=== PATIENT | female | born 1950 | race Caucasian/White ===

== ENCOUNTER → 2023-08-07 09:09 | Outpatient (REF) | payer MEDICARE, OTHER, SELFPAY | LOC: HWRAD 09:09 | PROVIDERS: ATTENDING PHYSICIAN Internal Medicine Interventional Cardiology; FAMILY PHYSICIAN Nurse Practitioner Family | DX: I10 Essential (primary) hypertension (principal) | CPT/HCPCS: 93975 ==

== ENCOUNTER → 2023-08-22 11:03 | Outpatient (REF) | payer MEDICARE, OTHER, SELFPAY | LOC: HWRCS 11:03 | PROVIDERS: ATTENDING PHYSICIAN Internal Medicine Interventional Cardiology; FAMILY PHYSICIAN Nurse Practitioner Family | DX: I10 Essential (primary) hypertension (principal) | CPT/HCPCS: 93306 ==

== ENCOUNTER → 2024-06-22 08:58 | Outpatient (REF) | payer MEDICARE, OTHER, SELFPAY | LOC: RAD 08:58 | PROVIDERS: ATTENDING PHYSICIAN Nurse Practitioner Family | DX: E83.52 Hypercalcemia (principal) | CPT/HCPCS: 78071; A9500 ==

== ENCOUNTER → 2024-06-23 11:34 | Outpatient (REF) | payer MEDICARE, OTHER, SELFPAY | LOC: RAD 11:34 | PROVIDERS: ATTENDING PHYSICIAN Nurse Practitioner Family; FAMILY PHYSICIAN Nurse Practitioner Family | DX: E83.52 Hypercalcemia (principal) | CPT/HCPCS: 76536 ==

== ENCOUNTER 2024-09-15 06:02 | Day surgery (SDC) | payer MEDICARE, OTHER, SELFPAY ==
[2024-08-24 14:17] VITALS: BMI 31.1
[2024-09-15] VITALS (18 sets, daily range): BP systolic 111–164; BP diastolic 54–85; BMI 31.1
[2024-09-15] MEDS: NEURONTIN 300 MG PO (07:16)
[2024-09-15] MEDS: TYLENOL 1000 MG PO (07:17)
[2024-09-15] MEDS: HEPARIN 5000 UNITS SC (07:22)
[2024-09-15] MEDS: NORMOSOL-R/PLASMALYTE-A 1000 IV (07:22)
[2024-09-15 07:24] LABS: Glucose - Point of Care 137 mg/dl (70-99)
[2024-09-15 08:38] LABS: Turbo PTH 286.6 pg/ml (13.6-85.8)
[2024-09-15 09:26] LABS: Turbo PTH 231.5 pg/ml (13.6-85.8)
[2024-09-15 10:11] LABS: Turbo PTH 167.2 pg/ml (13.6-85.8)
[2024-09-15 11:14] LABS: Turbo PTH 56.9 pg/ml (13.6-85.8)
[2024-09-15 11:18] LABS: Glucose - Point of Care 180 mg/dl (70-99)
--- NOTE | 2024-09-15 11:34 | OR.RPT ---
Operative Report
Operative Report
Date of Operation: September 15, 2024
Preoperative Diagnosis: Parathyroid hyperparathyroidism - E210
Postoperative Diagnosis: Same
Surgeon: Hank Vicente M.D.
Operation: Neck exploration, Left Superior Parathyroidectomy � 17734; Resection of the bilateral superior horn thymic tissue
Anesthesia: GET
Estimated Blood Loss: 3 cc
Drains: None
Specimen: Left Superior neck nodule, rule out parathyroid adenoma, Right lower neck nodule, rule out parathyroid adenoma, bilateral superior horn thymic tissue
Complications: None
Procedure:
The patient was taken to the operating room and placed in the usual supine position. After adequate general endotracheal anesthesia was established, the patient's neck was extended, prepped, and draped in the typical sterile fashion. A 4 cm
transcervical incision was made two fingerbreadths above the sternal notch. The skin incision was made with the #15 blade, and this was taken through the skin into the subcutaneous tissue. The underlying platysma muscle was divided, and subplatysmal
flaps were created superiorly to the thyroid cartilage and inferiorly to the sternal notch. Strap muscles were identified and at the midline.
The attention was turned to the left side of the neck. The left thyroid lobe was mobilized medially. During this process, the left recurrent laryngeal nerve was identified and preserved throughout the surgery. The left upper neck nodule was
identified and noted to be enlarged, excised, and sent to the pathology department, which showed a hypercellular parathyroid gland. The intraoperative PTH levels failed to normalize.
Therefore, a neck exploration was performed. The normal-appearing, normal-sized left superior glan was identified on the thyroid, near where the nerve and the trachea are in the mid aspect of the right thyroid lobe. There was no obvious right and
left inferior parathyroid glands. The superior horn tissue from the right and left sides of the neck was taken and sent to the pathology department. The final PTH level normalized.
After obtaining adequate hemostasis, the strap muscles were reapproximated with #3-0 Vicryl in a running fashion. The platysma muscle was reapproximated with #3-0 Vicryl in an interrupted fashion, and the skin was approximated with #4-0 Monocryl in
a running subcuticular fashion. The Steri-Strips and sterile dressings were placed. The patient tolerated the procedure well. The final instrument, needle, and sponge counts were correct. The patient was extubated and transferred to the PACU.
[2024-09-15] MEDS: NOVOLOG vial 1 UNITS SC ×2 (11:44→13:18)
[2024-09-15 13:14] LABS: Glucose - Point of Care 231 mg/dl (70-99)
[2024-09-15] MEDS: ERYTHROMYCIN 0.5% OPHTHALMIC OINTMENT 1 APPLIC OPHTH (13:55)
[2024-09-15] MEDS: TYLENOL 650 MG PO (15:00)
[2024-09-15 15:25] LABS: Glucose - Point of Care 179 mg/dl (70-99)
[2024-09-15] MEDS: ROXICODONE 5 MG PO (15:57)
== END 2024-09-15 16:00 | disposition home or self-care (01) ==
LOC: SDS 06:02
PROVIDERS: ATTENDING PHYSICIAN Surgery
DX: D35.1 Benign neoplasm of parathyroid gland (principal); E21.3 Hyperparathyroidism, unspecified
CPT/HCPCS: 60500; 82962; 83970; 88305; 88331; C1776